=== PATIENT | male | born 2005 | race Caucasian/White ===

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

== ENCOUNTER 2025-02-16 13:42 | Outpatient (CLI) | payer OTHER ==
[~2025-02-16 13:42] MED LIST changes: +MUPIROCIN15 GM TOP; +ZITHROMAX200 MG PO
== END 2025-02-16 13:49 | disposition home or self-care (01) ==
LOC: RAD 13:42
DX: M99.02 Segmental and somatic dysfunction of thoracic region (principal); M99.03 Segmental and somatic dysfunction of lumbar region; S22.31XA Fracture of one rib, right side, initial encounter for closed fracture; S22.32XA Fracture of one rib, left side, initial encounter for closed fracture; X58.XXXA Exposure to other specified factors, initial encounter; Y93.9 Activity, unspecified; Y92.9 Unspecified place or not applicable; Y99.9 Unspecified external cause status

== ENCOUNTER → 2025-06-21 | Outpatient (CLI) | payer OTHER | END | disposition home or self-care (01) | LOC: RAD 13:50 | DX: M25.562 Pain in left knee (principal) ==